=== PATIENT | male | born 1995 | race African-American/Black ===

== ENCOUNTER 2023-09-03 22:20 | Inpatient (IN) | payer OTHER ==
[~2023-09-03] VITALS: Ht 182.9 cm; Wt 93.1 kg
[2023-09-03 23:09] LABS: BASO % 0.3 % (0.0-1.0); EOS % 0.2 % (0.0-3.0); HEMATOCRIT 43.3 % (42.0-52.0); HEMOGLOBIN 15.4 g/dl (13.5-17.5); LYMPH # 1.7 10^3/uL (1.5-5.0); LYMPH % 18.3 % (24.0-44.0); MEAN CORPUSCULAR HEMOGLOBIN 32.3 pg (27.0-33.0); MEAN CORPUSCULAR HGB CONC 35.6 g/dl (32.0-36.5); MEAN CORPUSCULAR VOLUME 90.8 fl (80.0-96.0); MONO % 11.2 % (2.0-8.0); NEUTROPHILS # 6.5 10^3/uL (1.5-8.5); NEUTROPHILS % 69.8 % (36.0-66.0); PLATELET COUNT, AUTOMATED 306 10^3/uL (150-450); RED BLOOD COUNT 4.77 10^6/uL (4.30-6.10); WHITE BLOOD COUNT 9.3 10^3/uL (4.0-10.0)
[2023-09-03 23:32] LABS: ALBUMIN 3.9 G/DL (3.2-5.2); BILIRUBIN,DIRECT 0.5 MG/DL (<0.4); BILIRUBIN,TOTAL 1.8 MG/DL (0.3-1.2); CALCIUM LEVEL 8.9 MG/DL (8.5-10.1); CREATININE FOR GFR 1.95 MG/DL (0.70-1.30); GLOMERULAR FILTRATION RATE 52.7 (>60); POTASSIUM SERUM 3.9 MMOL/L (3.5-5.1); TOTAL PROTEIN 6.9 G/DL (5.7-8.2)
[2023-09-04] MEDS: NS 1,000 ML IV ONE (01:13)
[2023-09-04] MEDS: MORPHINE 4 MG/ML 1ML VIAL IV ONE (01:18)
[2023-09-04] MEDS ORDERED: ONDANSETRON 4MG 2ML VIAL IV PRN (02:55)
[2023-09-04 03:06] LABS: AMPHETAMINES LEVEL URINE NEGATIVE (NEGATIVE); BENZODIAZEPINES URINE NEGATIVE (NEGATIVE); CANNABINOIDS URINE NEGATIVE (NEGATIVE); COCAINE METABOLITE URINE NEGATIVE (NEGATIVE); METHADONE URINE NEGATIVE (NEGATIVE); OPIATES URINE NEGATIVE (NEGATIVE); PHENCYCLIDINE URINE NEGATIVE (NEGATIVE)
[2023-09-04 03:39] VITALS: BP 152/83; TEMP 98.1; O2SAT 98
[2023-09-04] MEDS: NS 1,000 ML IV SCH (03:40)
[2023-09-04] MEDS: LIDOCAINE 5% (LIDODERM) PATCH TD ONE (04:07)
[2023-09-04 05:18] LABS: BARBITURATES URINE NEGATIVE (NEGATIVE)
[2023-09-04 09:32] LABS: ALBUMIN 3.3 G/DL (3.2-5.2); BILIRUBIN,TOTAL 1.9 MG/DL (0.3-1.2); CALCIUM LEVEL 8.3 MG/DL (8.5-10.1); CREATININE FOR GFR 2.13 MG/DL (0.70-1.30); GLOMERULAR FILTRATION RATE 47.6 (>60); TOTAL PROTEIN 6.1 G/DL (5.7-8.2)
[2023-09-04 12:00] VITALS: BP 154/83; TEMP 98.1; O2SAT 97
[2023-09-04 20:00] VITALS: BP 140/84; TEMP 98.3; O2SAT 99
[2023-09-04] MEDS: NORCO, ANEXSIA 5/325MG TABLET (HYDROcodone/ACETAMINOPHEN) PO ONE (20:26)
[2023-09-05 04:55] VITALS: BP 124/71; TEMP 98.2; O2SAT 99
[2023-09-05 06:45] LABS: BASO % 0.2 % (0.0-1.0); EOS # 0.1 10^3/uL (0.0-0.5); EOS % 0.6 % (0.0-3.0); HEMATOCRIT 42.3 % (42.0-52.0); HEMOGLOBIN 14.5 g/dl (13.5-17.5); LYMPH # 1.7 10^3/uL (1.5-5.0); LYMPH % 20.6 % (24.0-44.0); MEAN CORPUSCULAR HEMOGLOBIN 31.7 pg (27.0-33.0); MEAN CORPUSCULAR HGB CONC 34.3 g/dl (32.0-36.5); MEAN CORPUSCULAR VOLUME 92.4 fl (80.0-96.0); MONO # 0.9 10^3/uL (0.0-0.8); MONO % 10.9 % (2.0-8.0); NEUTROPHILS # 5.7 10^3/uL (1.5-8.5); NEUTROPHILS % 67.5 % (36.0-66.0); PLATELET COUNT, AUTOMATED 288 10^3/uL (150-450); RED BLOOD COUNT 4.58 10^6/uL (4.30-6.10); WHITE BLOOD COUNT 8.4 10^3/uL (4.0-10.0)
[2023-09-05 07:08] LABS: CALCIUM LEVEL 7.9 MG/DL (8.5-10.1); CREATININE FOR GFR 1.91 MG/DL (0.70-1.30); POTASSIUM SERUM 4.2 MMOL/L (3.5-5.1)
[2023-09-05 12:00] VITALS: BP 128/82; TEMP 98.1; O2SAT 98
[2023-09-05 13:14] LABS: ANTI-STREPTOLYSIN O QUANT 148.7 IU/ML (<195); COMPLEMENT C3 107.4 MG/DL (82.0-160.0)
[2023-09-05 15:20] LABS: TOTAL PROTEIN 24 HOUR URINE 613.3 MG/24HR (50-80); URINE TOTAL PROTEIN 14.1 MG/DL (0-14)
[2023-09-05 20:00] VITALS: BP 149/84; TEMP 98.8; O2SAT 98
[2023-09-06 04:00] VITALS: BP 136/79; TEMP 98.2; O2SAT 99
[2023-09-06 06:43] LABS: PROTEIN, TOTAL SO 5.9 g/dL (6.1-8.1)
[2023-09-06 08:36] LABS: BASO % 0.4 % (0.0-1.0); EOS # 0.1 10^3/uL (0.0-0.5); EOS % 0.7 % (0.0-3.0); HEMATOCRIT 41.9 % (42.0-52.0); HEMOGLOBIN 14.4 g/dl (13.5-17.5); LYMPH # 1.8 10^3/uL (1.5-5.0); MEAN CORPUSCULAR HEMOGLOBIN 31.9 pg (27.0-33.0); MEAN CORPUSCULAR HGB CONC 34.4 g/dl (32.0-36.5); MEAN CORPUSCULAR VOLUME 92.9 fl (80.0-96.0); MONO # 0.8 10^3/uL (0.0-0.8); MONO % 10.6 % (2.0-8.0); NEUTROPHILS # 4.7 10^3/uL (1.5-8.5); NEUTROPHILS % 64.2 % (36.0-66.0); PLATELET COUNT, AUTOMATED 313 10^3/uL (150-450); RED BLOOD COUNT 4.51 10^6/uL (4.30-6.10); WHITE BLOOD COUNT 7.3 10^3/uL (4.0-10.0)
[2023-09-06 09:16] LABS: BLOOD UREA NITROGEN 10 MG/DL (9-23); CALCIUM LEVEL 8.1 MG/DL (8.5-10.1); CARBON DIOXIDE LEVEL 24 MMOL/L (20-31); CHLORIDE LEVEL 109 MMOL/L (98-107); GLUCOSE, FASTING 90 MG/DL (60-100); POTASSIUM SERUM 4.2 MMOL/L (3.5-5.1); SODIUM LEVEL 141 MMOL/L (136-145)
[2023-09-06 12:00] VITALS: BP 129/76; TEMP 98.1; O2SAT 100
[2023-09-06 12:47] LABS: CREATININE FOR GFR 1.68 MG/DL (0.70-1.30)
[2023-09-06 12:48] LABS: GLOMERULAR FILTRATION RATE > 60.0 (>60)
[2023-09-06 13:07] LABS: ANA SCREEN, IFA NEGATIVE (NEGATIVE)
[2023-09-08 14:28] LABS: COMPLEMENT TOTAL (CH50) 53 U/mL (31-60)
[2023-09-08 21:32] LABS: ANCA SCREEN Negative (Negative)
[2023-09-09 07:18] LABS: ALBUMIN SO 3.4 g/dL (3.8-4.8); ALPHA 1 GLOBULINS SO 0.3 g/dL (0.2-0.3); ALPHA 2 GLOBULINS SO 0.5 g/dL (0.5-0.9); BETA 2 GLOBULIN SO 0.3 g/dL (0.2-0.5); BETA GLOBULIN SO 0.3 g/dL (0.4-0.6); GAMMA GLOBULINS SO 1.1 g/dL (0.8-1.7)
== END 2023-09-06 13:40 | disposition home or self-care (01) | DRG 683 ==
LOC: M ED 22:20 → M ED INP 09-04 02:52 → M MSPAV 09-04 03:19
PROVIDERS: ADMIT Preventive Medicine Undersea and Hyperbaric Medicine; ATTEND Internal Medicine Nephrology
DX: N17.9 Acute kidney failure, unspecified (principal); M62.82 Rhabdomyolysis; E80.6 Other disorders of bilirubin metabolism; M54.9 Dorsalgia, unspecified; G89.29 Other chronic pain; Z91.013 Allergy to seafood; K76.89 Other specified diseases of liver; D64.9 Anemia, unspecified; F17.200 Nicotine dependence, unspecified, uncomplicated